=== PATIENT | female | born 1965 | race Caucasian/White ===

== ENCOUNTER 2017-03-30 18:29 | Emergency (ER) | payer MEDICARE ==
--- NOTE | 2017-03-30 19:22 | ER Document Report ---
ED Extremity Problem, Lower - General Chief Complaint: Leg Pain Stated Complaint: LEFT LEG PAIN Time Seen by Provider: 03/30/17 19:09 Notes: Patient is a 51-year-old female comes emergency department for chief complaint of left leg pain, pain is below her knee but above her ankle. She started noticing earlier today, she states it hurts when she walks. She denies numbness or weakness. She denies trauma. She denies fever or chills. She denies back pain. Past medical history of mental retardation, no other diagnosed medical problems, she takes no daily medications, she denies any surgeries or allergies. Family member at bedside confirms this. TRAVEL OUTSIDE OF THE [place] IN LAST 30 DAYS: No - Related Data Allergies/Adverse Reactions: No Known Allergies Allergy (Verified 03/30/17 18:30) Past Medical History - General Information source: Patient - Social History Smoking Status: Never Smoker Chew tobacco use (# tins/day): No Frequency of alcohol use: None Drug Abuse: None Lives with: Family Family History: Reviewed & Not Pertinent Patient has suicidal ideation: No Patient has homicidal ideation: No - Medical History Medical History: Negative Renal/ Medical History: Denies: Hx Peritoneal Dialysis Surgical Hx: Negative - Immunizations Immunizations up to date: Yes Hx Diphtheria, Pertussis, Tetanus Vaccination: Yes Review of Systems - Review of Systems Constitutional: No symptoms reported EENT: No symptoms reported Cardiovascular: No symptoms reported Respiratory: No symptoms reported Gastrointestinal: No symptoms reported Genitourinary: No symptoms reported Female Genitourinary: No symptoms reported Musculoskeletal: See HPI Skin: No symptoms reported Hematologic/Lymphatic: No symptoms reported Neurological/Psychological: No symptoms reported Physical Exam - Vital signs Vitals: Temp Pulse Resp BP Pulse Ox 99.1 F 95 18 170/99 H 98 03/30/17 18:38 03/30/17 18:38 03/30/17 18:38 03/30/17 18:38 03/30/17 18:38 Interpretation: Normal - General General appearance: Appears well, Alert - HEENT Head: Normocephalic, Atraumatic Eyes: Normal Pupils: PERRL - Respiratory Respiratory status: No respiratory distress Chest status: Nontender Breath sounds: Normal Chest palpation: Normal - Cardiovascular Rhythm: Regular Heart sounds: Normal auscultation Murmur: No - Abdominal Inspection: Normal Distension: No distension Bowel sounds: Normal Tenderness: Nontender Organomegaly: No organomegaly - Back Back: Normal, Nontender - Extremities General upper extremity: Normal inspection, Nontender, Normal color, Normal ROM , Normal temperature General lower extremity: Other - Patient complains of pain when palpated over the general calf area, no obvious swelling, no obvious discomfort, no erythema, induration, or other abnormality. Patient ambulates on the leg without any difficulty, full range of motion of all joints, normal distal neurovascular exam. - Neurological Neuro grossly intact: Yes Cognition: Normal Orientation: AAOx4 Roberto Coma Scale Eye Opening: Spontaneous Duson Coma Scale Verbal: Oriented Roberto Coma Scale Motor: Obeys Commands Roberto Coma Scale Total: 15 Speech: Normal Motor strength normal: LUE, RUE, LLE, RLE Sensory: Normal - Psychological Associated symptoms: Normal affect, Normal mood - Skin Skin Temperature: Warm Skin Moisture: Dry Skin Color: Normal Course - Re-evaluation Re-evalutation: Patient has normal strength and sensation in the leg, she ambulates without difficulty. No evidence of this being from a central source. General pain in the calf area, nonspecific, no obvious swelling in either leg. Patient does not smoke, no recent travel or surgery, no personal history of blood clots, they report report a family history of blood clots. Nontraumatic. As result venous Doppler ultrasound was ordered. Blood pressure is elevated, rechecked and downtrending, no history of hypertension, no chest pain, headache, visual changes, focal numbness or weakness. Patient will have this rechecked with primary care for potential management. This was discussed. Doppler is negative. Discussed results, patient will be treated with naproxen for leg pain, patient given referral to primary care physicians, discussed monitoring, treatment, return precautions. Patient and family member state understanding and agreement. - Vital Signs Vital signs: Temp Pulse Resp BP Pulse Ox 98.4 F 81 16 155/101 H 100 03/30/17 21:51 03/30/17 21:51 03/30/17 21:51 03/30/17 21:51 03/30/17 21:51 Discharge - Discharge Clinical Impression: Left leg pain Condition: Stable Disposition: HOME, SELF-CARE Instructions: Family Physicians / Practices Additional Instructions: The ultrasound of your leg does not show any abnormality and this is probably muscular pain. Take the prescribed naproxen, rest your leg, follow-up with a primary care provider (see list). Return for any concerning or worsening symptoms including swelling of the leg, fever, numbness/weakness, or any other concerning symptoms. Prescriptions: Naproxen 250 mg PO BID PRN #14 tablet PRN Reason: Forms: Elevated Blood Pressure
[2017-03-30] MEDS ORDERED: NAPROXEN 250 MG TABLET PO ONE (21:30)
[2017-03-30 21:52] VITALS: BP 155/101
--- NOTE | 2017-04-01 16:25 | XCELERA REPORT ---
[address] [address] Lower Extremity Venous Evaluation Name: DAMARI ABREU Age: 51 yrs Gender: Female : 1965 Patient Status: Emergency Patient Location: ER Study Date: 03/30/2017 08:31 PM Procedure: Color flow and duplex imaging of the veins of the left lower extremity as well as the right Common Femoral vein. Reason For Study: left leg/calf pain, family hx blood clots Ordering Physician: GEETHA ROUSE Performed By: Fay Tanner Right Sided Venous Evaluation The right common femoral vein is fully compressible. Spontaneous and phasic flow is present in the right common femoral vein. Left Sided Venous Evaluation Normal vessel filling wall to wall, compression and augmentation as well as Colour flow down to the infrageniculate veins. Interpretation Summary No duplex evidence of DVT or obstruction in the left lower extremity nor in the right Common Femoral vein. : GEETHA ROUSE > Ben Moore
== END 2017-03-30 21:50 | disposition home or self-care (01) ==
LOC: ER 18:29
DX: M79.662 Pain in left lower leg (principal); F79 Unspecified intellectual disabilities
CPT/HCPCS: 99283; 93971 ×2; A9270